=== PATIENT | male | born 1980 | race Asian ===

== ENCOUNTER 2019-08-02 23:42 | Emergency (ER) | payer OTHER ==
[~2019-08-02] VITALS: Ht 172.7 cm; Wt 81.6 kg
[2019-08-03 00:24] VITALS: BP_SYST 137
--- NOTE | 2019-08-03 00:45 | NUR ---
Patient to ER bed 07 for evaluation. Side rails up.
--- NOTE | 2019-08-03 00:50 | NUR ---
Pt AAOx4 ambulated into ED c/o swelling and pain to posterior neck x 5 days r/t possible infection due to scratching pimples at site. Nodular, immovable mass to site. No active bleeding/discharge noted. No other injuries/complaits per pt/noted. Will continue to monitor.
--- NOTE | 2019-08-03 01:07 | NUR ---
ER at bedside examining patient.
[2019-08-03] MEDS ORDERED: SULFAMETHOXAZOLE/TRIMETHOPR DS 1 TABLET PO ONE (01:15)
[2019-08-03] MEDS ORDERED: OXYCODONE/ACETAMINOPHEN *10*mg/325 mg TABLET PO ONE (01:15)
--- NOTE | 2019-08-03 01:18 | NUR ---
Medication administered. PT tolerated well. No adverse reactions noted.
--- NOTE | 2019-08-03 01:23 | NUR ---
Patient given written and verbal discharge instructions and verbalizes understanding. ER MD Phan discussed with patient the results and treatment provided. Patient in stable condition. ID arm band removed. Rx of [place], Bactrim given. Patient educated on pain management and to follow up with PMD. Pain Scale 0. Opportunity for questions provided and answered. Medication side effect fact sheet provided.
[2019-08-03 01:24] VITALS: BP_SYST 128
== END 2019-08-03 01:24 | disposition home or self-care (01) ==
LOC: SED 23:42
DX: L03.221 Cellulitis of neck (principal); E11.9 Type 2 diabetes mellitus without complications
CPT/HCPCS: 99283